=== PATIENT | female | born 1990 | race Two or more races ===

== ENCOUNTER 2024-12-24 14:12 | Emergency (ER) | payer MEDICAID, SELFPAY ==
[2024-12-24 14:13] VITALS: BMI 29.2
[2024-12-24 14:26] VITALS: BP 120/83; PULSE 81; RESP 19; TEMP 37.1; O2SAT 96
--- NOTE | 2024-12-24 14:44 | XR_ITS ---
Examination: PA lateral chest 2 views Technique: Upright PA lateral chest 2 views Date and time: December 24, 2024, 1459 hrs. Indications: Coughing today Findings: Normal heart size. Lungs are clear. The osseous structures are intact Impression: No active disease
[2024-12-24 18:18] VITALS: BP 117/71; PULSE 55; RESP 17; TEMP 36.7; O2SAT 98
--- NOTE | 2024-12-24 18:36 | EDNOTE_ITS ---
Upper Respiratory Inf. RME/HPI General Chief Complaint: Flu Like Symptoms Stated Complaint: COUGH FOR 5 WEEKS Time Seen by Provider: 12/24/24 14:35 Source: patient Arrival date/time: 12/24/24 14:12 Mode of arrival: ambulatory Limitations: no limitations RME / HPI RME / HPI Narrative: patient p./w cough 5 weeks. Denies f,chills, nausea, vomit, abd pain, dysuria, hematuria,recent travel, sick contacts. No difficulty breathing,. Related Data Previous Rx's ?Medication ?Instructions ?Recorded fexofenadine-pseudoephedrine ER 1 tab PO QAM #14 tabs 12/24/24 180 mg-240 mg tablet,ext.release 24 hr (Yasmin-D 24 Hour) Allergies Allergy/AdvReac Type Severity Reaction Status Date / Time No Known Allergies Allergy Verified 12/24/24 14:15 ED Exam General Limitations: Present no limitations Head Head exam: Present atraumatic Eye Eye exam: Present normal appearance, PERRL and EOMI ENT ENT exam: Present normal exam, normal oropharynx and mucous membranes moist Neck Neck exam: Present normal inspection, full ROM and trachea midline; Absent tenderness, meningismus or lymphadenopathy Chest Chest inspection: Present normal inspection and symmetric chest wall rise Respiratory Respiratory exam: Present normal lung sounds bilaterally; Absent respiratory distress, wheezes, stridor or accessory muscle use Cardiovascular Cardiovascular exam: Present regular rate and normal rhythm Abdominal Exam Abdominal exam: Present soft; Absent distention, tenderness or guarding Extremities Exam Extremities exam: Present normal inspection and full ROM Back Exam Back exam: Present normal inspection Neurological Exam Neurological exam: Present alert, oriented X3, CN II-XII intact and normal gait Psychiatric Psychiatric exam: Present normal affect Skin Skin exam: Present warm, dry and intact Course Quality Measures none Orders Category Date Time Status CXR2 [XR chest 2V] Stat Exams 12/24/24 14:44 Completed Vital Signs Vital signs: Vital Signs Temperature 98.8 F 12/24/24 14:26 Pulse Rate 81 12/24/24 14:26 Respiratory Rate 19 12/24/24 14:26 Blood Pressure 120/83 12/24/24 14:26 Pulse Oximetry (%) 96 12/24/24 14:26 Oxygen Delivery Method Room Air 12/24/24 14:26 Upper Respiratory Infection MDM Narrative MDM Narrative:: p/w cough 5 weeks. No resp distress, no LE edema, no hemoptysis, no LE swelling, no recent travel or immobiliation or use of hormonal meds. Less likely PE, acs, dissection. Chest x-ray without any acute abnormalities, no focal consolidations effusions or infiltrates. Patient may be developing bronchitis however, may have a component of seasonal allergies and post nasal drip. Advised to follow up with pcp, and possibly an legal contracts specialist Patient data External records reviewed:: None Clinical information provided by:: patient Social determinants that could affect healthcare access:: none Patient has the following chronic illnesses:: none How is presenting disease/condition affected by chronic disease/condition?: no chronic disease Evaluation data The following diagnostics were reviewed and interpreted by me:: radiology exam(s) Lab and/or radiology exams considered but not ordered:: none Interpretation Summary: nl Medications / Prescriptions Medications or Prescriptions considered but not ordered:: none Medication administrations:: none Consultations Consultation(s) initiated? (list below): No Diagnosis Upper Respiratory Differential Diagnosis: upper respiratory infection, sinusitis and bronchitis Most likely diagnosis given after review of the tests above:: cough, bronchitis Admission Indicated Admission indicated?: not indicated Admission Request Was there a request for admission?: No Disposition Plan Disposition Plan: Discharge Discharge Attestation Discharge Attestation: The patient and all family members were given an opportunity to ask questions and understood the discharge instructions. Discharge instructions specifically effects, indications for sooner follow up or return to the emergency department, and the expected course of current diagnosis. Patient condition: Stable Discharge Plan Plan Patient Disposition: HOME (Self Care) Prescriptions/Referrals Prescriptions/Med Rec: New fexofenadine-pseudoephedrine [Yasmin-D 24 Hour] 180-240 mg tablet extended release 24 hr 1 tab PO QAM Qty: 14 0RF Problem List Clinical Impression: Cough Patient/Caregiver Discharge Instructions Additional Instructions: Your chest x-ray did not show any evidence of fluid in your lungs, pneumonia or other acute abnormalities. I am prescribing you an allergy medication, that will hopefully help you with symptoms that appear to be related to postnasal drip and possible allergies. Please discuss with your primary care doctor referral to see an e learning developer for evaluation of your large tonsils as well as your symptoms of recurrent mucus in your throat causing you to cough. Print Language: [place] Stand Alone Forms: [employer] Award Info., Patient Portal Info Letter
== END 2024-12-24 19:30 | disposition home or self-care (01) ==
PROVIDERS: Emergency Provider Emergency Medicine; PCP Nurse Practitioner Women's Health
DX: R05.9 Cough, unspecified (principal)
CPT/HCPCS: 71046; 99282